=== PATIENT | female | born 1965 | race Caucasian/White ===

== ENCOUNTER 2018-10-08 13:30 | Emergency (ER) | payer MEDICARE ==
[2018-10-08 13:50] VITALS: BP 116/75
[2018-10-08] MEDS ORDERED: Aspirin TAB* 325 MG PO ONE (14:00)
--- NOTE | 2018-10-08 14:03 | UC ---
Dizzy HPI HPI Summary: 53 year old female with PMH+ for MVP, no medications, tx, syncopal episodes presents with feeling dizziness, chest pain with associated tightness beginning this afternoon while doing leg PT on a patient. NO stress, no exertion. Patient continues to feel weak, slightly dizzy with chest tightness. NO prior episodes. son drove her here. NO palpitations, no recent medications. - History Of Current Complaint Chief Complaint: UCGeneralIllness Stated Complaint: DIZZY, TIRED Time Seen by Provider: 10/08/18 13:35 Hx Obtained From: Patient Hx Last Menstrual Period: 2 weeks ago ?: No Onset/Duration: Sudden Onset Severity Initially: Mild Severity Currently: Mild Pain Intensity: 0 Pain Scale Used: 0-10 Numeric Character: Lightheaded, Dizzy Aggravating Factor(s): Nothing Alleviating Factor(s): Nothing Associated Signs And Symptoms: Negative: Nausea, Vomiting, Chest Pain, SOB, Palpitations - Allergies/Home Medications Allergies/Adverse Reactions: Allergies Allergy/AdvReac Type Severity Reaction Status Date / Time amlodipine [From [facility]] Allergy Syncope Verified 10/08/18 13:46 Home Medications: Home Medications Calcium Carbonate/Vitamin D3 [Calcium 600+D [place]] 1 tab PO DAILY [History Confirmed 10/08/18] Gabapentin CAP(*) [Neurontin 100 mg CAP(*)] 200 mg PO DAILY 10/08/18 [History Confirmed 10/08/18] PMH/Surg Hx/FS Hx/Imm Hx Previously Healthy: Yes - Surgical History Surgical History: Yes Surgery Procedure, Year, and Place: part of lung removed (upper right lobe). hernia repair. esophageal tightening. bone infection - tip of right index finger removed. laser removal of ca cells of cervix - Social History Alcohol Use: None Substance Use Type: None Smoking Status (MU): Never Smoked Tobacco Review of Systems All Other Systems Reviewed And Are Negative: Yes Constitutional: Positive: Negative Cardiovascular: Positive: Other - "tightness". Negative: Palpitations, Chest Pain Motor: Positive: Weakness Is Patient Immunocompromised?: No Physical Exam Triage Information Reviewed: Yes Appearance: Well-Appearing, No Pain Distress, Well-Nourished Vital Signs: Initial Vital Signs Temp 97.5 F 10/08/18 13:41 Pulse 58 10/08/18 13:41 Resp 18 10/08/18 13:41 BP 116/75 10/08/18 13:41 Pulse Ox 100 10/08/18 13:41 Vital Signs Reviewed: Yes Eyes: Positive: Conjunctiva Clear Neck: Positive: Supple, Nontender, No Lymphadenopathy Respiratory: Positive: Chest non-tender, Lungs clear, Normal breath sounds, No respiratory distress, No accessory muscle use. Negative: Respiratory distress, Crackles, Rhonchi, Stridor, Wheezing Cardiovascular: Positive: No Murmur, Pulses Normal, Bradycardia - 60bpm Abdomen Description: Negative: CVA Tenderness (R), CVA Tenderness (L) Psychological Exam: Normal Skin Exam: Normal Dizzy Course/Dx - Course Course Of Treatment: EKG- bradycardia, WNLs, no h/o bradycardia. Due to further work up needed, patient advised to go to ER. Refused ambulance due to cost, will have son take her to ER. ASA given. REport given to [facility]. - Differential Dx/Diagnosis Differential Diagnosis/HQI/PQRI: CVA, Vasovagal Reaction Provider Diagnosis: Chest pain Discharge - Sign-Out/Discharge Documenting (check all that apply): Patient Departure All imaging exams completed and their final reports reviewed: No Studies - Discharge Plan Condition: Improved Disposition: HOME-RECOMMEND TO ED Patient Education Materials: Chest Pain (ED) Referrals: Brenton Hassan MD [Primary Care Provider] - Additional Instructions: - Please go directly to ER for further evaluation [facility] called and informed of your arrival - Billing Disposition and Condition Condition: IMPROVED Disposition: Home-Recommend to ED - Attestation Statements Provider Attestation: I was available for consult. This patient was seen by the QUYEN. The patient was not presented to, seen by, or examined by me. -Dana
== END 2018-10-08 14:08 | disposition home health service (06) ==
LOC: UCCORT 13:30
DX: R07.9 Chest pain, unspecified (principal); Z79.899 Other long term (current) drug therapy
CPT/HCPCS: 93005; 99212; G0463